=== PATIENT | female | born 1950 | race Caucasian/White ===

== ENCOUNTER 2020-01-16 15:13 | Emergency (ER) | payer BC, MEDICARE ==
[~2020-01-16] VITALS: Ht 160 cm; Wt 74.8 kg
[2020-01-16] MEDS ORDERED: SYNTHROID50 MCG PO (15:28)
[2020-01-16] MEDS ORDERED: NORCO 5-325 TA1 EAC2 PO (16:21)
[2020-01-16 16:57] VITALS: BP 162/64
== END 2020-01-16 16:58 | disposition home or self-care (01) ==
LOC: M.ERS 15:13
DX: S52.592A Other fractures of lower end of left radius, initial encounter for closed fracture (principal); S60.222A Contusion of left hand, initial encounter; S60.221A Contusion of right hand, initial encounter; E03.9 Hypothyroidism, unspecified; Z88.0 Allergy status to penicillin; Z90.710 Acquired absence of both cervix and uterus; W18.39XA Other fall on same level, initial encounter; Y93.89 Activity, other specified; Y92.89 Other specified places as the place of occurrence of the external cause; Y99.8 Other external cause status